=== PATIENT | female | born 1995 ===

== ENCOUNTER 2018-08-31 16:54 | Emergency (ER) | payer OTHER ==
--- NOTE | 2018-08-31 19:11 | UC ---
Ear Complaint HPI - HPI Summary HPI Summary: 22-year-old female presents with 2 day history of progressively worsening left ear pain. Associated with about one half weeks nasal congestion and clear nasal discharge. Denies fever, chills, ear drainage, dizziness, vertigo, sore throat, cough, chest pain, shortness of breath, abdominal pain, nausea, or vomiting. - History of Current Complaint Chief Complaint: UCEar Stated Complaint: EAR PAIN Time Seen by Provider: 08/31/18 18:49 Hx Obtained From: Patient Hx Last Menstrual Period: 3 mons ago Onset/Duration: Gradual Onset, Lasting Days - 2 Severity Initially: Mild Severity Currently: Moderate Pain Intensity: 6 Aggravating Factors: Nothing Alleviating Factors: Nothing Related History: Seasonal Allergies - Allergies/Home Medications Allergies/Adverse Reactions: Allergies Allergy/AdvReac Type Severity Reaction Status Date / Time No Known Allergies Allergy Verified 08/31/18 18:16 Home Medications: Home Medications Cetirizine* [ZyrTEC 10 MG TAB*] 1 tab PO DAILY 08/31/18 [History Confirmed 08/31] PMH/Surg Hx/FS Hx/Imm Hx Previously Healthy: Yes - Denies significant PMH - Surgical History Surgical History: None - Family History Family History: Noncontributory - Social History Occupation: Employed Full-time Lives: With Family Alcohol Use: Occasionally Substance Use Type: None Smoking Status (MU): Never Smoked Tobacco Review of Systems Constitutional: Negative Eyes: Negative ENT: Ear Ache, Nasal Discharge, Sinus Congestion Cardiovascular: Negative Gastrointestinal: Negative Neurological: Negative Is Patient Immunocompromised?: No All Other Systems Reviewed And Are Negative: Yes Physical Exam Triage Information Reviewed: Yes Appearance: Well-Appearing, No Pain Distress, Well-Nourished Vital Signs: Initial Vital Signs Temp 97.9 F 08/31/18 18:13 Pulse 92 08/31/18 18:13 Resp 12 08/31/18 18:13 BP 133/72 08/31/18 18:13 Pulse Ox 99 08/31/18 18:13 Eyes: Positive: Conjunctiva Clear. Negative: Discharge ENT: Positive: Hearing grossly normal, Nasal congestion, TM dull - left, TM red - left, Uvula midline. Negative: Pharyngeal erythema, Nasal drainage, Tonsillar swelling, Tonsillar exudate, Sinus tenderness Neck: Positive: Supple, Nontender, No Lymphadenopathy Respiratory: Positive: Lungs clear, Normal breath sounds, No respiratory distress Cardiovascular: Positive: RRR, No Murmur Neurological: Positive: Alert Skin Exam: Normal Ear Complaint Course/Dx - Course Course Of Treatment: 22-year-old female with 2 day history of left ear pain. Associated with some mild nasal congestion and drainage she associates with some environmental allergies. Afebrile. Exam reveals a dull erythematous left TM consistent with mild acute otitis media. Will treat with a ten-day course of amoxicillin 500 mg twice a day. Recommend fluticasone nasal spray to help with the nasal congestion and [id number] analgesics. Warning symptoms were reviewed with the patient. She verbalizes understanding and agrees with plan of care. - Differential Dx/Diagnosis Differential Diagnosis/HQI/PQRI: Otitis Externa, Otitis Media, URI Provider Diagnoses: left otitis media Discharge - Sign-Out/Discharge Documenting (check all that apply): Patient Departure All imaging exams completed and their final reports reviewed: No Studies - Discharge Plan Condition: Stable Disposition: HOME Prescriptions: Amoxicillin 500 mg PO BID #20 capsule Fluticasone NASAL SPRAY 50MCG* [Flonase NASAL SPRAY 50MCG*] 2 spray BOTH NARES DAILY #1 btl Patient Education Materials: Ear Infection (ED) Referrals: No Primary Care Phys,NOPCP [Primary Care Provider] - [facility] [place] [facility]IAN REFERRAL [Outside] Additional Instructions: Ear exam in the clinic this evening was consistent with a left ear infection. We will start to on an antibiotic to treat this. Start amoxicillin 500 mg twice a day for 10 days. Take this with food to avoid upset stomach. Be sure to take the entire course of the antibiotic even if you' re feeling better. Start fluticasone nasal spray 2 sprays each nostril to help with the nasal congestion and promote drainage. Use [id number] acetaminophen (Tylenol) or ibuprofen (Advil, Motrin) according to directions as needed for pain. Return here or follow up with primary care provider if symptoms persist. I have provided you the number for the [facility] physician referral Center if you need assistance with establishing with a provider. Seek immediate medical attention if you develop fever greater than 100.5 F, have worsening pain, drainage or blood from the ear, become weak or dizzy, have any worsening of symptoms. - Billing Disposition and Condition Condition: STABLE Disposition: Home
== END 2018-08-31 19:26 | disposition home or self-care (01) ==
LOC: UCEAST 16:54
DX: H66.92 Otitis media, unspecified, left ear (principal)
CPT/HCPCS: 99202; G0463